=== PATIENT | female | born 1960 | race Caucasian/White ===

== ENCOUNTER → 2018-04-20 | Day surgery (SDC) | payer OTHER ==
[~2018-04-20] VITALS: Ht 160 cm; Wt 95.3 kg
[~2018-04-20] MED LIST: COZAAR50 M1 PO; ESCITALOPRAM OX20 MG PO; MILK THISTLE150 M1 PO
--- NOTE | 2018-04-20 13:50 | Operative Report ---
Operative/Inv Procedure Report Surgery Date: 04/20/18 Name of Procedure: Left knee arthroscopy #1 Arthroscopic medial meniscectomy #2 arthroscopic lateral meniscectomy Pre-Operative Diagnosis: Left knee medial meniscal tear Osteoarthritis left knee primary Post-Operative Diagnosis: Same with additional lateral meniscal tear Estimated Blood Loss: scant Surgeon/Sort Line Worker: Ayala HADLEY,Ck Anesthesia: laryngeal mask airway Implants: None Drains: None Specimens: None Tourniquet: Not used Complications: None Condition: Stable Operative Indication: Patient is a 57-year-old woman who developed acute left knee pain. Evaluation revealed medial meniscal pathology. Patient was treated conservatively for a period of time but unfortunately had increasing symptoms that interfere with normal activities of daily living. We also rule out medial insufficiency fracture due to the severity of her pain. This workup was negative for insufficiency fracture of the medial plateau. She continued to have medial knee pain MRI evaluation revealed irregularity of the medial meniscus consistent with tear. She wished to proceed with arthroscopic management of the problem due to the severity of the pain in his and interference of her normal activities of daily living. We discussed risks benefits and expectations of surgical and further nonsurgical options which included but were not limited to persistent knee pain, need for subsequent surgery, infection, PT, injury to blood vessel or nerve and anesthesia risks. She wished to proceed with surgical management. She understands that she may still have a source of knee pain even with treatment of the medial meniscus which may be due to the osteoarthritis Operative/Procedure Note Note: Patient was brought to the operating room and transferred to the operating table. Once under appropriate anesthesia the left lower extremity was prepped and draped in standard fashion. Preoperative IV antibiotic's were given prophylactically. A standard inferolateral patellar lateral portal site was established. Scope was inserted. Patellofemoral compartment was visualized. There was some chondral changes along the median ridge of the patella. This would be addressed later on the case. I dropped down into the medial compartment. Grade 2 changes along the weightbearing portion of the medial femoral condyle and matching tibial surface. There was a fairly large mid body medial meniscal tear that extended posteriorly to the posterior horn area I established an medial portal site and was able to probe and confirm the location of the tear and the extent of the tear. I then proceeded to use the straight biters followed by the shaver to complete the partial medial meniscectomy. The majority and remaining portion of the medial meniscus was intact and stable to probing. I then visualized the ACL and PCL directly and probe the structures. No abnormalities. Mild synovitis in the notch. I then placed the leg into a figure 4 position and was able to visualize the lateral meniscus from anterior horn to posterior horn. There was also a mid body tear of the lateral meniscus that extended into the anterior horn. I used the shaver to complete the partial lateral meniscectomy. No chondral changes of the lateral femoral condyle. Minimal grade 1 softening of the tibial compartment laterally. I entered the lateral gutter. No evidence of loose bodies. I went up to the patellofemoral compartment and used the shaver to complete the chondroplasty of the undersurface of the patella. A small portion of the median ridge was found to have chondral changes of grade 2-3. After debridement, copious irrigation of the knee followed. All fluid and inserts removed from the knee and the portal sites were closed with interrupted nylon suture. Appropriate just his were applied and patient was awakened and taken to recovery room in good condition. No intraoperative complications. Blood loss was minimal. Discharge Disposition: PACU
== END ==
LOC: STS 03:30
DX: M23.204 Derangement of unspecified medial meniscus due to old tear or injury, left knee (principal); M23.242 Derangement of anterior horn of lateral meniscus due to old tear or injury, left knee; M17.12 Unilateral primary osteoarthritis, left knee; M25.562 Pain in left knee; I10 Essential (primary) hypertension
CPT/HCPCS: J0131; J1200; J2250; J2405; J3490